=== PATIENT | male | born 1970 | race Two or more races ===

== ENCOUNTER 2023-01-26 05:51 | Day surgery (SDC) | payer OTHER ==
[~2023-01-26] VITALS: Ht 180.3 cm; Wt 111.6 kg
== END 2023-01-26 16:20 | disposition home or self-care (01) ==
LOC: CIR.AMB 05:51
PROVIDERS: ATTEND Colon & Rectal Surgery
DX: K64.4 Residual hemorrhoidal skin tags (principal); K64.8 Other hemorrhoids; K92.2 Gastrointestinal hemorrhage, unspecified; Z20.822 Contact with and (suspected) exposure to COVID-19